=== PATIENT | female | born 1965 | race Caucasian/White ===

== ENCOUNTER → 2017-02-13 | Emergency (ER) | payer OTHER ==
[~2017-02-13] VITALS: Ht 165.1 cm; Wt 68.0 kg
[~2017-02-13] MED LIST: CEFUROXIME500 MG PO; CONEX TABLET1 EACH PO; KETO10TA2 PO
== END | disposition home or self-care (01) ==
LOC: ER 22:15
DX: R50.9 Fever, unspecified (principal); J32.8 Other chronic sinusitis